=== PATIENT | female | born 1960 | race Two or more races ===

== ENCOUNTER 2020-11-26 19:20 | Inpatient (IN) | payer OTHER ==
[~2020-11-26] VITALS: Ht 154.9 cm; Wt 54.4 kg
[~2020-11-26 19:20] MED LIST: COZAAR25 MG; IBUPROFEN800 MG PO; KETO10TA2 PO; METFORMIN HCL500 MG; ORPH100T PO
[2020-11-26] MEDS ORDERED: LANTUS SOL100 UNIT/1 (19:38)
--- NOTE | 2020-11-26 19:39 | NUR ---
SE RECIBE PTE ALERTA Y ORIENTADA X3,REFIERE TENER DIARREAS,DOLOR EN LA CINDY LADO ANTONIO,EMESIS X2.
--- NOTE | 2020-11-26 20:42 | NUR ---
SE ORIENTA PTE SOBRE TX MEDICO EL CUAL REFIERE ENTENDER.SE LE EXTRAEN MUESTRAS BAJO MEDIDAS ASEPTICAS,SE CANALIZA Y SE ADMINISTRA MEDICAMENTO CHANDLER ORDEN MEDICA.SE NOTIFICA CT Y SE ENTREGA CONTRASTE,SE ORIENTA SOBRE EL MISMO.
--- NOTE | 2020-11-27 08:31 | NUR ---
SE RECIBE PTE DLE TURNO ANTERIOR, ALERTA Y ORIENTADA EN KACIE LATONYA ESFERAS, EN TOSHIA NIVEL MAS BAJO, KENNEDY DE IDENTIFICACION Y BARANDAS ELEVADAS POR PRECAUCION, EN COMPANIA DE FAMILIAR. SE OBSERVA CON BUEN PATRON RESPIRATORIO Y PIEL TIBIA AL TACTO. IV PATENTE Y DANII DE EDEMA O ERITEMA CON KCL 40MEQ/0.9% NSS @150ML/HR. PENDIENTE A RESULTADOS DE LABORATORIO QUE SE REPITIERON CHANDLER ORDEN MEDICA.
[2020-11-28] MEDS ORDERED: METFORMIN HCL1000 M3 (15:17)
[2020-11-28] MEDS ORDERED: CLOPIDOGREL BIS75 MG (15:17)
== END 2020-11-30 13:02 | disposition home or self-care (01) | DRG 392 ==
LOC: ER 19:20 → MEDI 11-27 21:26
PROVIDERS: ADMIT Internal Medicine; ATTEND Internal Medicine
PROC: BW2110Z Computerized Tomography (CT Scan) of Abdomen and Pelvis using Low Osmolar Contrast, Unenhanced and Enhanced (ICD-10-PCS; principal; 2020-11-27)
PROC: BQ3HZZZ Magnetic Resonance Imaging (MRI) of Left Ankle (ICD-10-PCS; 2020-11-27)
DX: K52.9 Noninfective gastroenteritis and colitis, unspecified (principal); N39.0 Urinary tract infection, site not specified; L03.116 Cellulitis of left lower limb; R65.10 Systemic inflammatory response syndrome (SIRS) of non-infectious origin without acute organ dysfunction; I10 Essential (primary) hypertension; E11.9 Type 2 diabetes mellitus without complications; D72.829 Elevated white blood cell count, unspecified; B96.20 Unspecified Escherichia coli [E. coli] as the cause of diseases classified elsewhere; Z86.73 Personal history of transient ischemic attack (TIA), and cerebral infarction without residual deficits

== ENCOUNTER 2024-01-19 13:43 | Outpatient (CLI) | payer OTHER ==
[~2024-01-19 13:43] MED LIST changes: +CLOPIDOGREL BIS75 MG; +LANTUS SOL100 UNIT/1; +METFORMIN HCL1000 M3
== END 2024-01-19 13:47 | disposition home or self-care (01) ==
LOC: RAD 13:43
DX: R07.9 Chest pain, unspecified (principal); R05.9 Cough, unspecified; R06.2 Wheezing; I10 Essential (primary) hypertension

== ENCOUNTER 2024-01-19 14:07 | Outpatient (CLI) | payer OTHER | END 2024-01-19 14:16 | disposition home or self-care (01) | LOC: MAMO-SONO 14:07 | PROVIDERS: ATTEND Obstetrics & Gynecology | DX: N60.11 Diffuse cystic mastopathy of right breast (principal) ==

== ENCOUNTER 2024-02-22 11:53 | Emergency (ER) | payer OTHER ==
[~2024-02-22] VITALS: Ht 154.9 cm; Wt 56.7 kg
[2024-02-22] MEDS ORDERED: COZAAR100 MG PO (12:24)
[2024-02-22] MEDS ORDERED: ACETAMINOPHEN 500 MG GEL..CAP PO ONE ×3 (13:30→17:17)
[2024-02-22 14:56] LABS: HEMATOCRIT 32.5 % (36.0-45.00); HEMOGLOBIN 11.2 g/dL (12.0-15.00); MEAN CELL VOLUME 88.7 fL (80.00-100.00); MEAN CORPUSCULAR HEMOGLOBIN 30.5 pg (27.00-32.0); MEAN CORPUSCULAR HGB CONC 34.4 g/dl (32.0-36.0); PLATELET COUNT 242 K/uL (150-450); RED BLOOD COUNT 3.66 M/uL (4.00-6.00); RED CELL DISTRIBUTION WIDTH 13.5 % (11.5-14.5)
[2024-02-22 15:04] LABS: ALBUMIN 3.9 gm/dL (3.4-5.0); BILIRUBIN TOTAL 0.32 mg/dL (0.3-1.2); CALCIUM 9.7 mg/dL (8.5-10.1); CREATININE SERUM 0.73 mg/dL (0.55-1.02); GFR 80.52; GLOBULINA 4.3 G/DL (2.4-3.5); POTASSIUM 4.16 mEq/L (3.5-5.1); TOTAL PROTEIN 8.2 gm/dL (6.4-8.2)
[2024-02-22 15:32] LABS: URINE BILIRRUBIN Negative (NEGATIVE); URINE BLOOD Negative; URINE COLOR Yellow; URINE KETONE Negative (NEGATIVE); URINE LEUKOCYTE Negative; URINE NITRATE Positive; URINE PROTEIN Negative (NEGATIVE); URINE UROBILINOGEN 0.2 E.U./dl
[2024-02-22 15:36] LABS: URINE EPITHELIAL CELLS 6.9 uL (0.0-38.8); URINE WBC 3.5 uL (0.0-23.2)
[2024-02-22 15:42] LABS: URINE BACTERIA > 9821.5 uL (0.0-1933); URINE GLUCOSE >=1000 MG/DL (NEGATIVE)
[2024-02-22 15:43] LABS: URINE APPEARANCE CLEAR
[2024-02-22] MEDS ORDERED: CIPROFLOXACIN IN 5 % DEXTROSE 400 MG/200 ML PIGGYBAG IV STA (17:12)
[2024-02-22] MEDS ORDERED: CIPROFLOXACIN IN 5 % DEXTROSE 400 MG/200 ML PIGGYBAG IV ONE (17:15)
[2024-02-22] MEDS ORDERED: CIPRO500 MG PO (17:17)
== END 2024-02-22 18:52 | disposition home or self-care (01) ==
LOC: ER 11:54
PROVIDERS: Emergency Medicine
DX: N39.0 Urinary tract infection, site not specified (principal); E11.9 Type 2 diabetes mellitus without complications; Z79.84 Long term (current) use of oral hypoglycemic drugs; I10 Essential (primary) hypertension; Z86.73 Personal history of transient ischemic attack (TIA), and cerebral infarction without residual deficits; Z20.822 Contact with and (suspected) exposure to COVID-19

== ENCOUNTER → 2025-03-12 | Emergency (ER) | payer OTHER ==
[~2025-03-12] VITALS: Ht 154.9 cm; Wt 56.7 kg
[~2025-03-12] MED LIST changes: +ACETAMINOPHEN 500 MG GEL..CAP PO STA; +CIPRO500 MG PO; +COZAAR100 MG PO; +KETOROLAC TROMETHAMINE 60 MG VIAL IM STA; +TRIJARDY XR 101 EACH
== END | disposition home or self-care (01) ==
LOC: ER 21:08
DX: S50.12XA Contusion of left forearm, initial encounter (principal); W17.89XA Other fall from one level to another, initial encounter; Y93.89 Activity, other specified; Y92.018 Other place in single-family (private) house as the place of occurrence of the external cause; Y99.9 Unspecified external cause status; E11.9 Type 2 diabetes mellitus without complications; Z79.84 Long term (current) use of oral hypoglycemic drugs